=== PATIENT | male | born 1995 | race Caucasian/White ===

== ENCOUNTER 2017-06-09 14:06 | Emergency (ER) | payer BC, OTHER ==
--- NOTE | 2017-06-09 14:11 | UC ---
Throat Pain/Nasal Mendez HPI - HPI Summary HPI Summary: 22 year old male presents with complains sore throat and mouth ulcerations. - History of Current Complaint Stated Complaint: THROAT Time Seen by Provider: 06/09/17 14:10 Hx Obtained From: Patient Onset/Duration: Sudden Onset Severity: Moderate Pain Scale Used: 0-10 Numeric - 2 - Allergies/Home Medications Allergies/Adverse Reactions: Allergies Allergy/AdvReac Type Severity Reaction Status Date / Time No Known Allergies Allergy Verified 06/09/17 14:23 PMH/Surg Hx/FS Hx/Imm Hx Previously Healthy: Yes - Surgical History Surgical History: None - Social History Alcohol Use: Occasionally Substance Use Type: None Smoking Status (MU): Never Smoked Tobacco Type: Smokeless Tobacco Amount Used/How Often: WEEKLY Length of Time of Smoking/Using Tobacco: COUPLE MONTHS - Immunization History Vaccination Up to Date: Yes Review of Systems Constitutional: Negative Skin: Negative Eyes: Negative ENT: Sore Throat, Sinus Congestion, Sinus Pain/Tenderness Respiratory: Negative Cardiovascular: Negative Gastrointestinal: Negative Genitourinary: Negative Motor: Negative Neurovascular: Negative Musculoskeletal: Negative Neurological: Negative Psychological: Negative All Other Systems Reviewed And Are Negative: Yes Physical Exam Triage Information Reviewed: Yes Vital Signs Reviewed: Yes Eye Exam: Normal ENT: Positive: Pharyngeal erythema, Nasal drainage Dental Exam: Normal Neck exam: Normal Neck: Positive: 1 Respiratory Exam: Normal Cardiovascular Exam: Normal Abdominal Exam: Normal Musculoskeletal Exam: Normal Neurological Exam: Normal Psychological Exam: Normal Skin Exam: Normal Throat Pain/Nasal Course/Dx - Differential Dx/Diagnosis Provider Diagnoses: canker sores. uvelitis. pharyngitis Discharge - Discharge Plan Condition: Stable Disposition: HOME Prescriptions: Amoxicillin/Clavulanate TAB* [Augmentin TAB 875*] 875 mg PO BID #20 tab LoraTADine TAB(NF) [Claritin 10 MG TAB(NF)] 10 mg PO DAILY #30 tab Magic M W2 Sang/Maal/Nyst/Lido* 5 ml SWISH SPIT QID PRN #120 ml PRN Reason: Pain Methylprednisolone [Medrol Dosepak 4 MG*] 4 mg PO .SEE NELLA INSTRUCTION #21 tab Patient Education Materials: Canker Sores (ED), Tonsillitis (ED) Referrals: Heraclio Chavez MD [Medical Doctor] -
[2017-06-09 14:24] VITALS: BP 115/60
== END 2017-06-09 14:52 | disposition home or self-care (01) ==
LOC: UCCORT 14:06
DX: J02.9 Acute pharyngitis, unspecified (principal); K13.79 Other lesions of oral mucosa; K12.0 Recurrent oral aphthae
CPT/HCPCS: 87070; 87651; 99212; G0463

== ENCOUNTER 2019-07-23 13:30 | Emergency (ER) | payer BC, OTHER ==
[2019-07-23 14:41] VITALS: BP 130/77
[2019-07-23 14:52] LABS: Influenza B Molecular POSITIVE (Negative)
--- NOTE | 2019-07-23 15:25 | UC ---
FLU HPI - HPI Summary HPI Summary: 24-year-old male presents with nasal congestion, mild sore throat, nonproductive cough/chest congestion, body aches, fever and chills, and decreased appetite 4 days. Patient also notes night sweats. Notes shortness of breath at times. Denies wheezing and difficulty breathing. Denies nausea and vomiting. Denies decreased fluid intake. Has been taking [id number] cold medications without relief. - History of Current Complaint Chief Complaint: UCRespiratory Stated Complaint: COUGH SWEATS CONGESTION Hx Obtained From: Patient Pain Intensity: 6 Pain Scale Used: 0-10 Numeric - Allergy/Home Medications Allergies/Adverse Reactions: Allergies Allergy/AdvReac Type Severity Reaction Status Date / Time No Known Allergies Allergy Verified 07/23/19 14:37 Home Medications: Home Medications NK [No Home Medications Reported] 07/23/19 [History Confirmed 07/23/19] PMH/Surg Hx/FS Hx/Imm Hx Previously Healthy: Yes - Surgical History Surgical History: None - Family History Known Family History: Positive: Non-Contributory - Social History Alcohol Use: Occasionally Substance Use Type: None Smoking Status (MU): Never Smoked Tobacco Type: Smokeless Tobacco Amount Used/How Often: WEEKLY Length of Time of Smoking/Using Tobacco: COUPLE MONTHS - Immunization History Vaccination Up to Date: Yes Review of Systems All Other Systems Reviewed And Are Negative: Yes Constitutional: Positive: Fever, Chills, Fatigue, Other - hot sweats ENT: Positive: Sore Throat - mild, Sinus Congestion. Negative: Ear Ache Respiratory: Positive: Shortness Of Breath - intermittent, Cough - nonproductive Cardiovascular: Positive: Negative. Negative: Chest Pain Gastrointestinal: Positive: Negative Musculoskeletal: Positive: Myalgia Neurological: Positive: Headache Physical Exam Triage Information Reviewed: Yes Appearance: No Pain Distress, Well-Nourished, Ill-Appearing Vital Signs: Initial Vital Signs Temp 98.6 F 07/23/19 14:34 Pulse 91 07/23/19 14:34 Resp 16 07/23/19 14:34 BP 130/77 07/23/19 14:34 Pulse Ox 97 07/23/19 14:34 Lab Results 07/23/19 Range/Units 14:48 Influenza B (Rapid) Positive A (Negative) Vital Signs Reviewed: Yes Eyes: Positive: Conjunctiva Clear ENT: Positive: Hearing grossly normal, Pharyngeal erythema, Nasal congestion, TMs normal, Uvula midline. Negative: Nasal drainage, Tonsillar swelling, Tonsillar exudate, Sinus tenderness Neck exam: Normal Neck: Positive: Supple, Nontender, No Lymphadenopathy Respiratory Exam: Normal Respiratory: Positive: Lungs clear, Normal breath sounds, No respiratory distress, No accessory muscle use. Negative: Crackles, Rhonchi, Stridor, Wheezing Cardiovascular Exam: Normal Cardiovascular: Positive: RRR. Negative: Tachycardia Neurological: Positive: Alert Psychological: Positive: Age Appropriate Behavior Skin Exam: Normal Flu Course/Dx - Course Course Of Treatment: Positive influenza B. Patient's symptomatic for 4 days, so Tamiflu not prescribed. Instructed to continue symptomatic treatment. Educated on signs and symptoms of worsening illness and instructed to go to ED if any red flags occur. VS and lung sounds normal. Patient voiced understanding and agreed with the treatment plan. - Differential Dx/Diagnosis Provider Diagnosis: Influenza B Discharge ED - Sign-Out/Discharge Documenting (check all that apply): Patient Departure All imaging exams completed and their final reports reviewed: No Studies - Discharge Plan Condition: Stable Disposition: HOME Patient Education Materials: Influenza (ED) Forms: *Work Release Referrals: [facility] [Outside] - If Needed Additional Instructions: As discussed, you tested positive for influenza B today. The flu is a virus and symptoms should resolve without treatment. You may take Thera Flu over the counter for symptomatic relief. Get plenty of rest and increase your fluid intake. Follow up with your primary care provider or the care if symptoms do not resolve within 5-7 days. Go to the emergency room with any new or worsening symptoms. - Billing Disposition and Condition Condition: STABLE Disposition: Home
== END 2019-07-23 15:40 | disposition home or self-care (01) ==
LOC: UCCORT 13:30
DX: J11.1 Influenza due to unidentified influenza virus with other respiratory manifestations (principal)
CPT/HCPCS: 99211; G0463